=== PATIENT | male | born 1945 | race Caucasian/White ===

== ENCOUNTER 2017-08-07 08:51 | Inpatient (IN) | payer MEDICARE, MEDICAID ==
[~2017-08-07] VITALS: Ht 101.6 cm; Wt 72.7 kg
--- NOTE | 2017-08-07 09:22 | EKG ---
[address] [address] Test Date: 2017-08-07 Test Time: 09:16:00 Pat Name: DANETTE DE LA VEGA Department: Room: Gender: M Statistics Intern: SAUL : 1945 Requested By: PAVEL YOUNG Order Number: [id number] Reading MD: Milton Saldana MD Measurements Intervals [place] Rate: 73 P: 22 [place]: 152 QRS: 52 QRSD: 94 T: 4 QT: 388 QTc: 431 Interpretive Statements SINUS RHYTHM VENTRICULAR PREMATURE COMPLEX(ES), TRIGEMINY Electronically Signed On 08-09-2017 16:04:58 CDT by Milton Saldana MD
[2017-08-07 09:25] LABS: BASO # 0.1 x10^3/uL (0.0-0.2); BASO % 1 % (0-3); EOS # 0.1 x10^3/uL (0.0-0.7); EOS % 2 % (0-3); HEMATOCRIT 45.7 % (39.0-53.0); HEMOGLOBIN 15.5 g/dL (13.0-17.5); LYMPH # 2.5 x10^3/uL (1.0-4.8); LYMPH % 26 % (24-48); MEAN CORPUSCULAR HEMOGLOBIN 31 pg (25-35); MEAN CORPUSCULAR HGB CONC 34 g/dL (31-37); MEAN CORPUSCULAR VOLUME 93 fL (79-100); MONO % 10 % (0-9); NEUT # 5.8 x10^3uL (1.8-7.7); NEUT % 61 % (31-73); PLATELET COUNT 254 x10^3/uL (140-400); RED BLOOD COUNT 4.93 x10^6/uL (4.30-5.70); RED CELL DISTRIBUTION WIDTH 16.3 % (11.5-14.5); WHITE BLOOD COUNT 9.5 x10^3/uL (4.0-11.0)
[2017-08-07 09:39] LABS: ALBUMIN 3.3 g/dL (3.4-5.0); ALBUMIN/GLOBULIN RATIO 0.8 (1.0-1.7); CALCIUM 9.3 mg/dL (8.5-10.1); CREATININE 1.1 mg/dL (0.7-1.3); GFR 65.8; MAGNESIUM 2.2 mg/dL (1.8-2.4); POTASSIUM 4.1 mmol/L (3.5-5.1); TOTAL BILIRUBIN 0.2 mg/dL (0.2-1.0); TOTAL PROTEIN 7.3 g/dL (6.4-8.2)
[2017-08-07 11:03] LABS: BILIRUBIN,URINE NEG (NEG); CLARITY,URINE CLEAR; COLOR,URINE YELLOW; GLUCOSE,URINE NEG (NEG); NITRITE,URINE NEG (NEG); UROBILINOGEN,URINE 0.2 mg/dL (0.2 mg/dL)
[2017-08-07 11:04] LABS: BACTERIA,URINE 0 /HPF (0-FEW); RBC,URINE OCC /HPF (0-2); SQUAMOUS EPITHELIAL CELL,UR FEW /LPF; WBC,URINE OCC /HPF (0-4)
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
[2017-08-07] MEDS ORDERED: TRAM50TA PO (11:53)
[2017-08-07] MEDS ORDERED: CITA20TA9 PO (11:53)
[2017-08-07] MEDS ORDERED: LOSA50TA2 PO (11:53)
[2017-08-07] MEDS ORDERED: HYDR-2868 PO (11:53)
[2017-08-07] MEDS ORDERED: GABA600T2 PO (11:53)
[2017-08-07] MEDS ORDERED: BUSP15TA PO (11:53)
[2017-08-07] MEDS ORDERED: NIFE30TA15 PO (11:53)
[2017-08-07] MEDS ORDERED: CLOP75TA PO (11:53)
[2017-08-07] MEDS ORDERED: TRAZ50TA15 PO (11:53)
[2017-08-07] MEDS ORDERED: MELA3TAB2 PO (11:53)
[2017-08-07] MEDS ORDERED: QUET100T4 PO (11:53)
[2017-08-07] MEDS ORDERED: QUET50TA5 PO (11:53)
[2017-08-07] MEDS ORDERED: METHYL SALICYLATE/MENTHOL TOPICAL OINTMENT 29GM TUBE. TP PRN (12:45)
[2017-08-07] MEDS ORDERED: MAG HYDROX/AL HYDROX/SIMETH 30 ML ORAL.SUSP PO PRN (12:45)
[2017-08-07] MEDS ORDERED: MAGNESIUM HYDROXIDE 2,400 MG/30 ML ORAL.SUSP. PO PRN (12:45)
[2017-08-07] MEDS ORDERED: ACETAMINOPHEN 325 MG TABLET PO PRN (12:45)
[2017-08-07 13:13] VITALS: BP 117/73
[2017-08-07] MEDS: hydrALAZINE 25 MG TABLET PO SCH ×2 (14:24→19:41)
[2017-08-07] MEDS: GABAPENTIN 300 MG CAPSULE. PO SCH ×2 (14:24→19:41)
[2017-08-07 16:44] VITALS: BP 122/57
[2017-08-07] MEDS: busPIRone 15 MG TABLET. PO SCH (19:43)
[2017-08-07] MEDS: traZODone 50 MG TABLET. PO SCH (19:43)
[2017-08-07] MEDS: MELATONIN 3 MG TABLET PO SCH (19:43)
[2017-08-07] MEDS: traMADol 50 MG TABLET PO SCH (19:44)
[2017-08-07] MEDS ORDERED: QUEtiapine 100 MG TABLET. PO SCH (21:00)
[2017-08-08 00:07] LABS: THYROXINE 5.8 ug/dL (4.5-12.0)
[2017-08-08 03:12] LABS: HEMOGLOBIN A1C 5.7 % (4.8-5.6)
[2017-08-08 05:52] VITALS: BP 121/78
[2017-08-08] MEDS: QUEtiapine 50 MG TABLET. PO SCH ×2 (09:00→09:07)
[2017-08-08] MEDS: LOSARTAN 50 MG TABLET. PO SCH ×2 (09:00→09:08)
[2017-08-08] MEDS: busPIRone 15 MG TABLET. PO SCH ×3 (09:00→21:00)
[2017-08-08] MEDS: CITALOPRAM 20 MG TABLET. PO SCH ×2 (09:00→09:07)
[2017-08-08] MEDS: GABAPENTIN 300 MG CAPSULE. PO SCH ×4 (09:00→21:00)
[2017-08-08] MEDS: SERTRALINE 25 MG TABLET. PO SCH ×2 (09:00→09:07)
[2017-08-08] MEDS: hydrALAZINE 25 MG TABLET PO SCH ×4 (09:00→21:00)
[2017-08-08] MEDS: NICOTINE 14MG PATCH. TD SCH ×2 (09:00→09:07)
[2017-08-08] MEDS: CLOPIDOGREL BISULFATE 75 MG TABLET PO SCH ×2 (09:00→09:07)
[2017-08-08] MEDS: traMADol 50 MG TABLET PO SCH ×2 (09:09→13:36)
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
[2017-08-08 13:37] LABS: THYROID STIM HORMONE (TSH) 1.427 uIU/mL (0.358-3.740)
[2017-08-08] MEDS: VALPROATE ACID 250 MG/5 ML ORAL SOLUTION PO SCH (19:00)
[2017-08-08] MEDS: risperiDONE ORAL 1 MG/ML 30ml BOTTLE. SL SCH (19:00)
--- NOTE | 2017-08-08 19:38 | CONS ---
DATE OF CONSULTATION: 08/08/2017 REASON FOR CONSULTATION: Medical management. HISTORY OF PRESENT ILLNESS: The patient is a 72-year-old male patient, a resident at [facility] at [place], [place] who was referred by his primary care physician on account of being combative with care, calling out with cares loud, disruptive, trying to throw himself on the floor, cursing at the staff, attempts have been made to control his marked mood vacillation and Seroquel was added. He apparently failed outpatient treatment and was admitted for inpatient psychiatric stabilization as he does have a prior diagnosis of impulse control disorder and possible vascular dementia, though at that time he was more oriented. According to the nursing staff, he has been sexually inappropriate, masturbating repeatedly, claiming that has not slept for 4 days while ____ since last night, claiming that he has not eaten his lunch while he has in fact eaten most of his lunch. PAST MEDICAL HISTORY: Significant for hypertension, chronic kidney disease, peripheral vascular disease, history of C. diff colitis, chronic pain syndrome. He has bilateral above-knee amputation for osteomyelitis. ALLERGIES: He has no known drug allergies. MEDICATIONS: He is currently on following medications: He is on Plavix 75 mg once a day, hydralazine 25 mg 3 times a day, nifedipine 30 mg once a day, losartan potassium 50 mg once a day, tramadol 50 mg twice a day, gabapentin 600 mg 3 times a day, citalopram hydrobromide for Celexa 20 mg once a day, trazodone 50 mg at bedtime, Seroquel 50 mg daily and Seroquel 100 mg at bedtime. He is on buspirone 15 mg twice a day and melatonin 3 mg at bedtime. FAMILY HISTORY: Noncontributory. SOCIAL HISTORY: He is a resident at the [facility] at [place], [place]. He does not drink alcohol or use drugs. PHYSICAL EXAMINATION: GENERAL: When I saw him, he was sitting in his wheelchair, in no apparent respiratory distress. He was somewhat pale, but no jaundice, cyanosis or thyromegaly. No jugular venous distension. No lower limb edema. VITAL SIGNS: His heart rate was 57, blood pressure was 121/78, temperature was 97.6, respiratory rate was 12 and his oxygen saturation was 97% on room air. HEENT: Showed normocephalic, atraumatic. NECK: Supple. HEART: Showed normal first and second heart sounds. No gallop, rub or murmur. CHEST: Clear to auscultation. No crepitation or rhonchi. ABDOMEN: Distended, soft, nontender. NEUROLOGIC: He is awake, alert, responding appropriately. Cranial nerves intact. He moves his upper extremities without difficulty, has bilateral above-knee amputation. LABORATORY DATA: His white cell count was 9500, hemoglobin 16, hematocrit 46, MCV 93, and platelet count 254,000. His lab work showed a serum sodium 138, potassium 4.1, chloride 107, bicarbonate 26, anion gap of 5, BUN 22, creatinine 1.1, estimated GFR was 66 mL per minute. His glucose was 131, calcium was 9.3, magnesium 2.2. Total bilirubin, AST, ALT were normal. Alkaline phosphatase slightly elevated. Total protein 7.3, albumin was 3.3. His hemoglobin A1c was 5.7%. His serum iron was 61, TIBC was 273 and percent saturation was 22%. His serum triglycerides were 141, total cholesterol 186, LDL cholesterol ____, VLDL 28, and HDL cholesterol was 32 with ratio was 3. His TSH is normal at 1.427, total T4 was 5.8. Total T3 was 96. Vitamin B12 was 676 picogram per mL. A 25-hydroxy vitamin D was 24.7. Urinalysis showed the urine was yellow, clear with a pH of 6, specific gravity of 1.005. The urine was negative for protein, glucose, ketones, blood, nitrite, and leukocyte esterase. There are no RBCs, no WBCs and very few bacteria, the treponema pallidum antibodies were nonreactive. IMPRESSION: So in summary, this is a 72-year-old male patient who was admitted on account of being very combative with care, calling out loud, disruptive, trying to throw himself to the floor, cursing at the staff, attempts have been made to control his marked mood vacillation with Seroquel that has failed and therefore, he was admitted for inpatient psychiatric stabilization. His vital signs are all within acceptable range. His lab work also is normal except that he has mildly impaired kidney function and his lipid panel showed it is not well controlled. He has also vitamin D deficiency. PLAN: My plan is to start him on cholecalciferol, we might have to increase or start him on Lipitor. Thank you, Dr. Romero, for allowing me to participate in the care of this patient. AN PERSAUD MD DR: DEBBIE/herlinda JOB#: [id number] / [id number]
--- NOTE | 2017-08-08 20:23 | PDOC ---
Exam Note: Garrett Note: Please also refer to the separate dictated note~for this date of service dictated separately.~Patient seen individually. Discussed the patient with Nursing staff reviewed the chart.~Reviewed interim history and current functioning. Reviewed vital signs,~Labs/ Radiology~and current medications noted below. Continue current treatment with the changes noted in the dictated addendum note Assessment: Vital Signs: Vital Signs Date Time Temp Pulse Resp B/P (MAP) Pulse Ox O2 Delivery O2 Flow Rate FiO2 08/08/17 13:37 97 08/08/17 09:00 57 121/78 08/08/17 05:52 97.6 12 Room Air I&O Intake and Output 08/08/17 07:00 Intake Total 1320 ml Balance 1320 ml Intake Oral 1320 ml Current Medications: Meds: Current Medications Acetaminophen (Tylenol) 650 mg PRN Q6HRS PRN PO PAIN / TEMP; Start 08/07/17 at 12:45 Multi-Ingredient Ointment (Analgesic Magnolia) 1 belen PRN QID PRN TP MUSCLE PAIN; Start 08/07/17 at 12:45 Al Hydroxide/Mg Hydroxide (Mylanta Plus Xs) 15 ml PRN AFTMEALHC PRN PO DYSPEPSIA; Start 08/07/17 at 12:45 Magnesium Hydroxide (Milk Of Magnesia) 2,400 mg PRN QHS PRN PO CONSTIPATION; Start 08/07/17 at 12:45 Nicotine (Nicoderm Cq 14mg) 1 patch DAILY TD ; Start 08/08/17 at 09:00 Citalopram Hydrobromide (CeleXA) 20 mg DAILY PO ; Start 08/08/17 at 09:00 Clopidogrel Bisulfate (Plavix) 75 mg DAILY PO ; Start 08/08/17 at 09:00 Losartan Potassium (Cozaar) 50 mg DAILY PO ; Start 08/08/17 at 09:00 Tramadol HCl (Ultram) 50 mg BID PO Last administered on 08/08/17at 09:09; Start 08/07/17 at 21:00 Buspirone HCl (Buspar) 15 mg BID PO Last administered on 08/07/17at 19:43; Start 08/07/17 at 21:00 Gabapentin (Neurontin) 600 mg TID PO Last administered on 08/07/17at 19:41; Start 08/07/17 at 14:00 Hydralazine HCl (Apresoline) 25 mg TID PO Last administered on 08/07/17at 19:41 ; Start 08/07/17 at 14:00 Melatonin 3 mg QHS PO Last administered on 08/07/17at 19:43; Start 08/07/17 at 21:00 Nifedipine (Procardia Xl) 30 mg DAILY PO ; Start 08/08/17 at 09:00 Quetiapine Fumarate (SEROquel) 50 mg DAILY PO ; Start 08/08/17 at 09:00; Stop at 18:44; Status DC Quetiapine Fumarate (SEROquel) 100 mg QHS PO Last administered on 08/07/17at 19: 43; Start 08/07/17 at 21:00; Stop 08/08/17 at 18:44; Status DC Trazodone HCl (Desyrel) 50 mg QHS PO Last administered on 08/07/17at 19:43; Start 08/07/17 at 21:00 Sertraline HCl (Zoloft) 25 mg DAILY PO ; Start 08/08/17 at 09:00 Vitamin D (Vitamin D3) 50,000 unit WEEKLY PO ; Start 08/09/17 at 09:00 Atorvastatin Calcium (Lipitor) 10 mg QHS PO ; Start 08/08/17 at 21:00 Valproic Acid (Depakene) 500 mg DAILY PO ; Start 08/08/17 at 19:00 Risperidone (RisperDAL) 1 mg DAILY SL ; Start 08/08/17 at 19:00 Active Scripts Active Reported Gabapentin 600 Mg Tablet 600 Mg PO TID Hydralazine Hcl 25 Mg Tablet 25 Mg PO TID Melatonin 3 Mg Tablet 3 Mg PO HS Tramadol Hcl (Tramadol HCl) 50 Mg Tablet 50 Mg PO BID Clopidogrel (Clopidogrel Bisulfate) 75 Mg Tablet 75 Mg PO DAILY Nifedipine Er (Nifedipine) 30 Mg Tablet.er 30 Mg PO DAILY Cozaar (Losartan Potassium) 50 Mg Tablet 50 Mg PO DAILY Seroquel (Quetiapine Fumarate) 100 Mg Tablet 100 Mg PO HS Seroquel (Quetiapine Fumarate) 50 Mg Tablet 50 Mg PO DAILY Celexa (Citalopram Hydrobromide) 20 Mg Tablet 20 Mg PO DAILY Trazodone Hcl 50 Mg Tablet 50 Mg PO HS Buspirone Hcl 15 Mg Tablet 15 Mg PO BID I have reviewed the current psychotropics carefully including drug interactions. Risk benefit ratio favors no change other than as noted in my dictated progress note. Diagnosis: Problems: (1) Impulse control disorder (2) Medical clearance for psychiatric admission (3) Anxiety disorder (4) Bipolar affective, mixed, sev w/ psych (5) Major depressive disorder, recurrent episode (6) Impulse control disorder TRUE ARREOLA MD Aug 08, 2017 20:23
[2017-08-08] MEDS: MELATONIN 3 MG TABLET PO SCH (21:00)
[2017-08-08] MEDS: traZODone 50 MG TABLET. PO SCH (21:00)
[2017-08-08] MEDS ORDERED: ATORVASTATIN CALCIUM 10 MG TABLET. PO SCH (21:00)
[2017-08-09] MEDS ORDERED: ATOR10TA60 PO (00:19)
[2017-08-09] MEDS ORDERED: ACET325T21 PO (00:19)
[2017-08-09] MEDS ORDERED: MAG355OR11 PO (00:20)
[2017-08-09] MEDS ORDERED: CHOL500021 PO (00:20)
[2017-08-09] MEDS ORDERED: MAGN2400 PO (00:20)
[2017-08-09] MEDS ORDERED: METH29OI TP (00:21)
[2017-08-09] MEDS ORDERED: NICO1PAT25 TD (00:22)
[2017-08-09] MEDS ORDERED: SERT25TA PO (00:22)
[2017-08-09] MEDS ORDERED: VALP250S PO (00:23)
[2017-08-09] MEDS ORDERED: RISP1SOL6 SL (00:25)
[2017-08-09 05:36] VITALS: BP 112/64
[2017-08-09 09:00] VITALS: BP 112/64
[2017-08-09] MEDS: traMADol 50 MG TABLET PO SCH (09:00)
[2017-08-09] MEDS: hydrALAZINE 25 MG TABLET PO SCH (09:00)
[2017-08-09] MEDS: CLOPIDOGREL BISULFATE 75 MG TABLET PO SCH (09:00)
[2017-08-09] MEDS: GABAPENTIN 300 MG CAPSULE. PO SCH (09:00)
[2017-08-09] MEDS: LOSARTAN 50 MG TABLET. PO SCH (09:00)
[2017-08-09] MEDS: NICOTINE 14MG PATCH. TD SCH (09:00)
[2017-08-09] MEDS ORDERED: CHOLECALCIFEROL (VITAMIN D3) 50,000 UNIT CAPSULE PO SCH (09:00)
[2017-08-09] MEDS: busPIRone 15 MG TABLET. PO SCH (10:15)
[2017-08-09] MEDS: CITALOPRAM 20 MG TABLET. PO SCH (10:15)
[2017-08-09] MEDS: SERTRALINE 25 MG TABLET. PO SCH (10:16)
[2017-08-09] MEDS: VALPROATE ACID 250 MG/5 ML ORAL SOLUTION PO SCH (10:17)
[2017-08-09] MEDS: risperiDONE ORAL 1 MG/ML 30ml BOTTLE. SL SCH (10:18)
--- NOTE | 2017-08-09 18:26 | PDOC ---
Exam Note: Garrett Note: Please also refer to the separate dictated note~for this date of service dictated separately.~Patient seen individually. Discussed the patient with Nursing staff reviewed the chart.~Reviewed interim history and current functioning. Reviewed vital signs,~Labs/ Radiology~and current medications noted below. Continue current treatment with the changes noted in the dictated addendum note Assessment: Vital Signs: Vital Signs Date Time Temp Pulse Resp B/P (MAP) Pulse Ox O2 Delivery O2 Flow Rate FiO2 08/09/17 09:00 95 112/64 08/09/17 05:36 22 95 08/08/17 05:52 97.6 Room Air I&O Intake and Output 08/09/17 07:00 Intake Total 1080 ml Balance 1080 ml Intake Oral 1080 ml # Voids 1 # Bowel Movements 2 Current Medications: Meds: Current Medications Acetaminophen (Tylenol) 650 mg PRN Q6HRS PRN PO PAIN / TEMP; Start 08/07/17 at 12:45; Stop 08/09/17 at 13:27; Status DC Multi-Ingredient Ointment (Analgesic Pavillion) 1 rodger PRN QID PRN TP MUSCLE PAIN; Start 08/07/17 at 12:45; Stop 08/09/17 at 13:27; Status DC Al Hydroxide/Mg Hydroxide (Mylanta Plus Xs) 15 ml PRN AFTMEALHC PRN PO DYSPEPSIA; Start 08/07/17 at 12:45; Stop 08/09/17 at 13:27; Status DC Magnesium Hydroxide (Milk Of Magnesia) 2,400 mg PRN QHS PRN PO CONSTIPATION; Start 08/07/17 at 12:45; Stop 08/09/17 at 13:27; Status DC Nicotine (Nicoderm Cq 14mg) 1 patch DAILY TD ; Start 08/08/17 at 09:00; Stop at 13:27; Status DC Citalopram Hydrobromide (CeleXA) 20 mg DAILY PO Last administered on 08/09/17at 10:15; Start 08/08/17 at 09:00; Stop 08/09/17 at 13:27; Status DC Clopidogrel Bisulfate (Plavix) 75 mg DAILY PO ; Start 08/08/17 at 09:00; Stop at 13:27; Status DC Losartan Potassium (Cozaar) 50 mg DAILY PO ; Start 08/08/17 at 09:00; Stop 08/09 at 13:27; Status DC Tramadol HCl (Ultram) 50 mg BID PO Last administered on 08/08/17at 09:09; Start 08/07/17 at 21:00; Stop 08/09/17 at 13:27; Status DC Buspirone HCl (Buspar) 15 mg BID PO Last administered on 08/09/17at 10:15; Start 08/07/17 at 21:00; Stop 08/09/17 at 13:27; Status DC Gabapentin (Neurontin) 600 mg TID PO Last administered on 08/07/17at 19:41; Start 08/07/17 at 14:00; Stop 08/09/17 at 13:27; Status DC Hydralazine HCl (Apresoline) 25 mg TID PO Last administered on 08/07/17at 19:41 ; Start 08/07/17 at 14:00; Stop 08/09/17 at 13:27; Status DC Melatonin 3 mg QHS PO Last administered on 08/07/17at 19:43; Start 08/07/17 at 21:00; Stop 08/09/17 at 13:27; Status DC Nifedipine (Procardia Xl) 30 mg DAILY PO ; Start 08/08/17 at 09:00; Stop at 13:27; Status DC Quetiapine Fumarate (SEROquel) 50 mg DAILY PO ; Start 08/08/17 at 09:00; Stop at 18:44; Status DC Quetiapine Fumarate (SEROquel) 100 mg QHS PO Last administered on 08/07/17at 19: 43; Start 08/07/17 at 21:00; Stop 08/08/17 at 18:44; Status DC Trazodone HCl (Desyrel) 50 mg QHS PO Last administered on 08/07/17at 19:43; Start 08/07/17 at 21:00; Stop 08/09/17 at 13:27; Status DC Sertraline HCl (Zoloft) 25 mg DAILY PO Last administered on 08/09/17at 10:16; Start 08/08/17 at 09:00; Stop 08/09/17 at 13:27; Status DC Vitamin D (Vitamin D3) 50,000 unit WEEKLY PO ; Start 08/09/17 at 09:00; Stop at 13:27; Status DC Atorvastatin Calcium (Lipitor) 10 mg QHS PO ; Start 08/08/17 at 21:00; Stop at 13:27; Status DC Valproic Acid (Depakene) 500 mg DAILY PO Last administered on 08/09/17at 10:17; Start 08/08/17 at 19:00; Stop 08/09/17 at 13:27; Status DC Risperidone (RisperDAL) 1 mg DAILY SL Last administered on 08/09/17at 10:18; Start 08/08/17 at 19:00; Stop 08/09/17 at 13:27; Status DC Active Scripts Active Reported Risperdal (Risperidone) 1 Mg/1 Ml Solution 1 Mg SL DAILY Depakene (Valproate Sodium) 250 Mg/5 Ml Solution 500 Mg PO DAILY Zoloft (Sertraline Hcl) 25 Mg Tablet 25 Mg PO DAILY NICODERM CQ 14mg (Nicotine) 1 Each Patch.td24 1 Patch TD DAILY Analgesic Pavillion (Methyl Salicylate/Menthol) 28 Gm Oint...g. 1 Rodger TP PRN QID PRN Milk Of Magnesia (Magnesium Hydroxide) 2,400 Mg/10 Ml Oral.susp 2,400 Mg PO PRN QHS PRN Maalox Advanced Suspension (Mag Hydrox/Aluminum Hyd/Simeth) 355 Ml Oral.susp 15 Ml PO PRN AFTMEALHC PRN D3-50 (Cholecalciferol (Vitamin D3)) 50,000 Unit Capsule 50,000 Unit PO WEEKLY Atorvastatin Calcium 10 Mg Tablet 10 Mg PO QHS Acetaminophen 325 Mg Tablet 650 Mg PO PRN Q6HRS PRN Gabapentin 600 Mg Tablet 600 Mg PO TID Hydralazine Hcl 25 Mg Tablet 25 Mg PO TID Melatonin 3 Mg Tablet 3 Mg PO HS Tramadol Hcl (Tramadol HCl) 50 Mg Tablet 50 Mg PO BID Clopidogrel (Clopidogrel Bisulfate) 75 Mg Tablet 75 Mg PO DAILY Nifedipine Er (Nifedipine) 30 Mg Tablet.er 30 Mg PO DAILY Cozaar (Losartan Potassium) 50 Mg Tablet 50 Mg PO DAILY Celexa (Citalopram Hydrobromide) 20 Mg Tablet 20 Mg PO DAILY Trazodone Hcl 50 Mg Tablet 50 Mg PO HS Buspirone Hcl 15 Mg Tablet 15 Mg PO BID I have reviewed the current psychotropics carefully including drug interactions. Risk benefit ratio favors no change other than as noted in my dictated progress note. Diagnosis: Problems: (1) Impulse control disorder (2) Major depressive disorder, recurrent episode (3) Bipolar affective, mixed, sev w/ psych (4) Anxiety disorder (5) Impulse control disorder TRUE ARREOLA MD Aug 09, 2017 18:26
--- NOTE | 2017-08-10 20:37 | DS ---
DATE OF DISCHARGE: 08/09/2017 Discharged 08/09/2017 against medical advice. The patient had a very difficult time on the unit. He is refusing all treatments and all the interventions. He has had to be in the quiet hallway for most of his hospitalization. He is finally insisting on the discharge and is being discharged against medical advice. REASON FOR ADMISSION: Please refer to the admission history for details. Briefly, the patient is a 72-year-old male referred to us from [facility] on account of increasingly combative behavior, yelling out with the cares, attempting to throw himself on the floor, swearing at the staff. Behaviors have been unmanageable, disruptive, and he is referred for inpatient psychiatric stabilization. He signs for himself. SIGNIFICANT FINDINGS AND CLINICAL COURSE: As noted above during his brief hospitalization, the patient was extremely loud, disruptive, frequently masturbating himself in front of others and sometimes in his room, but he is trying to drop himself on the floor, refusing all psychotropics. He is reasonably oriented and staff diligently attempted to convince him to take his psychotropics, but he was not accepting of it. No active suicidal or homicidal ideation were noted nevertheless. He was on Seroquel 50 mg a.m., 100 mg at bedtime and this was changed to Risperdal liquid 1 mg a day and given his marked mood lability, started on Depakene 500 mg daily with labs. PLAN: CBC, CMP, valproic acid level in 3 days. He remained on Celexa 20 mg a day, trazodone 50 mg at bedtime, Zoloft 25 mg a day was stopped. The patient was extremely noncompliant with treatment and he had no power of admitted attorneys or guardian assigned to him and we had to accept his wishes not to use any psychotropic. There was little else we could do for him. No active suicidal or homicidal ideation prior to discharge. He remained disruptive nevertheless. 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 REVIEW OF SYSTEMS: No CV, , pulmonary, eye system symptoms on review. MENTAL STATUS EXAM: Reasonably oriented. Speech coherent, rapid, loud at times. Abstraction fair, computation impaired, language function intact. Mood and affect remain somewhat labile. No active suicidal or homicidal ideation. Staff encouraged compliance with the oral psychotropics. He was not accepting of it and finally demanded he be discharged against medical advice, which was done. FINAL DIAGNOSES: Probable bipolar 1 disorder, mixed with the psychotic features; anxiety disorder, unspecified; impulse control disorder. Rest unchanged from admission note. DISCHARGE MEDICATIONS: Please refer to the [facility]. DISCHARGE INSTRUCTIONS: [facility]. Time for discharge day management greater than 30 minutes. TRUE ARREOLA MD DR: NELY/herlinda JOB#: [id number] / [id number]
--- NOTE | 2017-08-10 23:45 | PN ---
DATE: 08/08/2017 This is a late entry, 08/08/2017, covers the elements not covered in my initial note, 08/08/2017. SUBJECTIVE: I met with the patient in the evening. The patient slept 7 hours the previous evening, refused his psychotropics. He has been quite disruptive, loud, agitated, and masturbating himself in the hallway. He was placed to reduce the stimuli that he was over reactive to. He is unable to sit in the dining room, had to be removed temporarily, then back in the dining room, ate his meal rapidly and again loud, disruptive. REVIEW OF SYSTEMS: Ambulation impaired, in the wheelchair. He has bilateral above knee amputation. No CV, , pulmonary, eye system symptoms on review. Reliability poor. MENTAL STATUS EXAM: Reasonably oriented. Speech coherent, rapid, loud at times, banging on the nursing station, glass window repeatedly. No active suicidal or homicidal ideation. Otherwise, he is well oriented. IMPRESSION: Probable bipolar 1 disorder, mixed with psychotic features; anxiety disorder, unspecified; impulse control disorder, unspecified. PLAN: CT head if patient is able to cooperate with this, change Seroquel to Risperdal liquid 1 mg daily. Start Depakene liquid 500 mg a day. Continue Celexa, trazodone, stop the Zoloft. Maintain melatonin 3 mg at bedtime. Further adjustments depending on his progress, but it is unclear whether we can benefit him very much since he is refusing all treatments and interventions on the unit and his own signatory without any DPOA or guardian in place and well oriented. MAN Taylor ARREOLA MD DR: NELY/herlinda JOB#: [id number] / [id number]
== END 2017-08-09 13:15 | disposition left against medical advice (07) | DRG 885 ==
LOC: ER 08:51 → GEROPSY 12:15
PROVIDERS: ADMIT Psychiatry & Neurology Psychiatry; ATTEND Psychiatry & Neurology Psychiatry
DX: F31.64 Bipolar disorder, current episode mixed, severe, with psychotic features (principal); F63.9 Impulse disorder, unspecified; E55.9 Vitamin D deficiency, unspecified; F41.9 Anxiety disorder, unspecified; G89.4 Chronic pain syndrome; N18.9 Chronic kidney disease, unspecified; I73.9 Peripheral vascular disease, unspecified; I12.9 Hypertensive chronic kidney disease with stage 1 through stage 4 chronic kidney disease, or unspecified chronic kidney disease; Z79.899 Other long term (current) drug therapy; Z89.612 Acquired absence of left leg above knee; Z89.611 Acquired absence of right leg above knee; Z86.19 Personal history of other infectious and parasitic diseases
CPT/HCPCS: 36415; 80053; 80061; 81001; 82306; 82607; 83036; 83540; 83550; 83735; 84436; 84443; 84480; 84484; 85025; 86592; 93005; 99407; 99285-25

== ENCOUNTER 2017-08-09 13:54 | Emergency (ER) | payer MEDICARE, MEDICAID ==
[~2017-08-09] VITALS: Ht 101.6 cm; Wt 72.6 kg
[~2017-08-09 13:54] MED LIST: ACET325T21 PO; ATOR10TA60 PO; BUSP15TA PO; CHOL500021 PO; CITA20TA9 PO; CLOP75TA PO; GABA600T2 PO; HYDR-2868 PO; LOSA50TA2 PO; MAG355OR11 PO; MAGN2400 PO; MELA3TAB2 PO; METH29OI TP; NICO1PAT25 TD; NIFE30TA15 PO; QUET100T4 PO; QUET50TA5 PO; RISP1SOL6 SL; SERT25TA PO; TRAM50TA PO; TRAZ50TA15 PO; VALP250S PO
[2017-08-09 14:00] VITALS: BP 139/97
--- NOTE | 2017-08-09 14:20 | PHYS DOC ---
Past History Past Medical History: Anemia, Anxiety, Depression, Heart Disease, Hypertension , Vascular Disease, Other Past Surgical History: Other Alcohol Use: None Drug Use: None Adult General Chief Complaint Chief Complaint: PSYCH EVALUATION [facility] HPI 72-year-old male presents with abrasions of his right wrist and right lower extremity stump. The patient has bilateral lower extremity amputations above the knee. He is quite loud and the drip. The patient keeps repeating please help me. He does answer all questions appropriately. He is alert and oriented. He is stating that he wants to leave and go back home. He was being loaded into the van back to the nursing facility when he slid out of his chair and onto the van floor. This is how he got the abrasions. He denies any significant pain in these areas except for directly over the abrasions. He has no other complaints except that he wants to go home. Review of Systems Review of Systems Constitutional: Denies fever or chills [] Eyes: Denies change in visual acuity, redness, or eye pain [] HENT: Denies nasal congestion or sore throat [] Respiratory: Denies cough or shortness of breath [] Cardiovascular: No additional information not addressed in HPI [] GI: Denies abdominal pain, nausea, vomiting, bloody stools or diarrhea [] : Denies dysuria or hematuria [] Musculoskeletal: Denies back pain or joint pain [] Integument: Abrasions[] Neurologic: Denies headache, focal weakness or sensory changes [] Endocrine: Denies polyuria or polydipsia [] All other systems were reviewed and found to be within normal limits, except as documented in this note. Allergies Allergies Allergies Coded Allergies Type Severity Reaction Last Updated Verified No Known Drug Allergies 08/07/17 No Physical Exam Physical Exam Constitutional: Well developed, well nourished, no acute distress, non-toxic appearance. [] HENT: Normocephalic, atraumatic, bilateral external ears normal, oropharynx moist, no oral exudates, nose normal. [] Eyes: PERRLA, EOMI, conjunctiva normal, no discharge. [] Neck: Normal range of motion, no tenderness, supple, no stridor. [] Cardiovascular:Heart rate regular rhythm, no murmur [] Lungs & Thorax: Bilateral breath sounds clear to auscultation [] Abdomen: Bowel sounds normal, soft, no tenderness, no masses, no pulsatile masses. [] Skin: Small abrasion of the posterior right wrist. Range of motion normal, no pain. Small abrasion of the right lower extremity stump. No surrounding erythema or pain with palpation. All bleeding controlled.[] Back: No tenderness, no CVA tenderness. [] Extremities: Bilateral lower extremity amputations above the knee.[] Neurologic: Alert and oriented X 3, normal motor function, normal sensory function, no focal deficits noted. [] Psychologic: Agitated, belligerent. He appears to be aware of his surroundings and situation. He answers questions appropriately. He insists on wanting to leave and go back to his care facility.[] EKG EKG [] Radiology/Procedures Radiology/Procedures [] Course & Med Decision Making Course & Med Decision Making Pertinent Labs and Imaging studies reviewed. (See chart for details) A psychiatric consult was requested. The psych piece goods packer came to the ED to visit with the patient in person. He did not find any plans for suicidal or homicidal ideation. He did not find the patient to be experiencing psychosis. He does not feel that there is a current reason to admit the patient against his will. He did sign a documented agreeing to be cooperative with transport back to his facility. My evaluation was similar. I do not see a reason to admit the patient as he is able to make decisions and is requesting to go home. The nursing facility has been contacted for transport. [] Dragon Disclaimer Dragon Disclaimer This electronic medical record was generated, in whole or in part, using a voice recognition dictation system. Departure Departure: Referrals: WHITNEY LO MD (PCP) CAMERON AUGUSTE DO Aug 09, 2017 14:20
== END 2017-08-09 15:39 | disposition home or self-care (01) ==
LOC: ER 13:54
DX: S80.811A Abrasion, right lower leg, initial encounter (principal); S60.811A Abrasion of right wrist, initial encounter; F41.9 Anxiety disorder, unspecified; F32.9 Major depressive disorder, single episode, unspecified; I10 Essential (primary) hypertension; Z86.2 Personal history of diseases of the blood and blood-forming organs and certain disorders involving the immune mechanism; X58.XXXA Exposure to other specified factors, initial encounter; Y93.89 Activity, other specified; Y99.8 Other external cause status; Y92.89 Other specified places as the place of occurrence of the external cause
CPT/HCPCS: 99284